=== PATIENT | female | born 1960 | race Caucasian/White ===

== ENCOUNTER → 2019-06-25 | Outpatient (CLI) | payer OTHER | LOC: MC.RAD 08:34 | DX: Z12.31 Encounter for screening mammogram for malignant neoplasm of breast (principal); R92.2 Inconclusive mammogram; N63.21 Unspecified lump in the left breast, upper outer quadrant ==

== ENCOUNTER → 2019-06-27 | Outpatient (CLI) | payer OTHER | LOC: MC.RAD 13:46 | DX: N64.89 Other specified disorders of breast (principal); N63.10 Unspecified lump in the right breast, unspecified quadrant ==

== ENCOUNTER → 2019-07-02 | Outpatient (CLI) | payer OTHER | LOC: MC.RAD 13:00 | DX: N63.11 Unspecified lump in the right breast, upper outer quadrant (principal) ==

== ENCOUNTER → 2020-04-02 | Outpatient (CLI) | payer OTHER | LOC: ZCOL.LAB 15:36 | DX: J02.9 Acute pharyngitis, unspecified (principal); H92.09 Otalgia, unspecified ear; Z20.828 Contact with and (suspected) exposure to other viral communicable diseases ==

== ENCOUNTER → 2020-07-17 | Outpatient (CLI) | payer OTHER | LOC: MC.RAD 08:15 | DX: Z12.31 Encounter for screening mammogram for malignant neoplasm of breast (principal) ==

== ENCOUNTER → 2021-09-30 | Outpatient (CLI) | payer OTHER | LOC: MC.RAD 08:12 | DX: Z12.31 Encounter for screening mammogram for malignant neoplasm of breast (principal) ==

== ENCOUNTER 2021-10-20 12:46 | Outpatient (RCR) | payer OTHER | END 2021-10-23 | LOC: WSOH | DX: S86.912A Strain of unspecified muscle(s) and tendon(s) at lower leg level, left leg, initial encounter (principal); F41.9 Anxiety disorder, unspecified; Z90.710 Acquired absence of both cervix and uterus; Y99.0 Civilian activity done for income or pay ==

== ENCOUNTER 2021-11-02 07:57 | Outpatient (RCR) | payer OTHER | END 2021-11-02 16:14 | disposition home or self-care (01) | LOC: WSOH 07:57 | DX: S86.912D Strain of unspecified muscle(s) and tendon(s) at lower leg level, left leg, subsequent encounter (principal); F41.9 Anxiety disorder, unspecified; Z90.710 Acquired absence of both cervix and uterus; Y99.0 Civilian activity done for income or pay ==

== ENCOUNTER → 2022-10-13 | Outpatient (CLI) | payer OTHER | LOC: MC.RAD 08:49 | DX: Z12.31 Encounter for screening mammogram for malignant neoplasm of breast (principal) ==

== ENCOUNTER → 2023-12-14 | Outpatient (CLI) | payer OTHER | LOC: MC.RAD 08:31 | DX: Z12.31 Encounter for screening mammogram for malignant neoplasm of breast (principal) ==